=== PATIENT | male | born 1985 | race Caucasian/White ===

== ENCOUNTER 2021-06-04 19:15 | Emergency (ER) | payer SELFPAY ==
--- NOTE | 2021-06-04 19:30 | NUR ---
Pt not in waiting room.
--- NOTE | 2021-06-04 19:48 | NUR ---
Pt not in waiting room.
== END 2021-06-04 20:40 | disposition left against medical advice (07) ==
LOC: ER 19:15
DX: Z53.21 Procedure and treatment not carried out due to patient leaving prior to being seen by health care provider (principal)